=== PATIENT | female | born 1985 | race Caucasian/White ===

== ENCOUNTER 2018-08-05 19:41 | Outpatient (CLI) | payer MEDICAID ==
[~2018-08-05] VITALS: Ht 154.9 cm; Wt 65.2 kg
[2018-08-05 20:24] VITALS: BP 102/63; PULSE 74; RESP 16
[2018-08-05] MEDS ORDERED: FERR134T PO (20:26)
--- NOTE | 2018-08-05 21:38 | PN ---
Triage Information Date/Time Reason for visit: Abd/pelvic pain Weeks of Gestation 26 weeks /Para Diabetes: none Hypertention: none Objective Vital Signs Date Temp Pulse Resp B/P (MAP) Pulse Ox O2 O2 Flow FiO2 Time Delivery Rate 08/05/18 98.7 74 16 102/63 Room Air 20:24 (76) Heart Rate: 130's Heart Rate Comments Appropriate for GA Contractions: None Exam Cervix closed Results/Medications Result Diagram: 08/05/18202608/05/182026 Results 24 hrs Laboratory Tests Test 08/05/18 19:40 08/05/18 20:27 Urine Color STRAW Urine Clarity CLEAR Urine pH 7.0 Urine Specific [place] 1.005 Urine Ketones NEGATIVE Urine Nitrite NEGATIVE Urine Bilirubin NEGATIVE Urine Urobilinogen NEGATIVE Urine Leukocyte Esterase NEGATIVE Urine Hemoglobin NEGATIVE Urine Glucose NEGATIVE Urine Total Protein NEGATIVE White Blood Count 10.3 Red Blood Count 3.69 L Hemoglobin 11.8 L Hematocrit 34.7 L Mean Corpuscular Volume 94.0 Mean Corpuscular Hemoglobin 32.0 Mean Corpuscular Hemoglobin Concent 34.0 Red Cell Distribution Width 12.6 Platelet Count 236 Mean Platelet Volume 10.2 Immature Granulocytes % 1.100 H Neutrophils % 74.2 Lymphocytes % 16.4 Monocytes % 6.7 Eosinophils % 1.2 Basophils % 0.4 Nucleated Red Blood Cells % 0.0 Immature Granulocytes # 0.110 H Neutrophils # 7.6 H Lymphocytes # 1.7 Monocytes # 0.7 Eosinophils # 0.1 Basophils # 0.0 Nucleated Red Blood Cells # 0.0 Sodium Level 137 Potassium Level 3.9 Chloride Level 104 Carbon Dioxide Level 21 Anion Gap 12 Blood Urea Nitrogen 9 Creatinine 0.41 L Est Glomerular Filtrat Rate mL/min > 60 Glucose Level 88 Calcium Level 8.9 Total Bilirubin 0.3 Direct Bilirubin 0.00 Indirect Bilirubin 0.3 Aspartate Amino Transf (AST/SGOT) 17 Alanine Aminotransferase (ALT/SGPT) 20 Alkaline Phosphatase 67 Total Protein 6.5 Albumin 3.5 Globulin 3.00 Albumin/Globulin Ratio 1.16 Imaging Results Cervical length normal Disposition: Discharge Assessment/Plan After rest, patient states her pain resolved. No sign of labor. SEVEN SALCIDO MD Aug 05, 2018 21:38
--- NOTE | 2018-08-06 00:33 | TRIAGE ---
OB Triage Datetime Report Generated by CPN: 08/06/2018 00:33 Datetime: 08/05/2018 21:32 Stage of : OB Triage Vaginal Exam Dilatation (cms): 0.0 Effacement (%): 0 Station: -3 Exam By: dR dELSH Membrane Status: Intact Vaginal Bleeding: None Cervix, Consistency: Firm Cervix, Position: Posterior Datetime: 08/05/2018 21:00 Stage of : OB Triage Labor Evaluation Monitor Mode: External Quality: Mild Pattern: Normal: <= 5 Contractions in 10 Minutes Resting Tone [place]: Relaxed Heart Rate FHR Baseline Rate: 140 Monitor Mode: External US FHR Baseline Changes: No Baseline Change Variability: Moderate 6-25 bpm Accelerations: 15X15 Decelerations: None Category: Category I Datetime: 08/05/2018 20:28 Labor Evaluation Monitor Mode: External Quality: Mild Pattern: Normal: <= 5 Contractions in 10 Minutes Resting Tone [place]: Relaxed Monitor Mode: External US FHR Baseline Changes: No Baseline Change Variability: Moderate 6-25 bpm Accelerations: 10X10 Decelerations: None Category: Category I Membrane Status: Intact Datetime: 08/05/2018 20:08 Time of Arrival: 08/05/2018 19:33 EGA: 26.3 Arrived By: Ambulatory Arrived From: Dr. Britton Chief Complaint: SENT FROM CLINIC W/ C/O CONSTANT ABD PAIN SINCE 1200 TODAY AND OCCAS SINCE HAMMOND NDAY Movement: Present Contractions: Denies/Absent Rupture of Membranes: Denies Vaginal Discharge: Denies Recent Sexual Intercouse: Denies Abdominal Trauma: Not Applicable Patient Complaints: Other Time Provider Notified: 08/05/2018 20:00 Provider Notified: Dr Ruiz Initial Plan: EFM UA Datetime: 08/05/2018 20:00 Stage of : OB Triage Datetime: 08/05/2018 19:54 Stage of : OB Triage Maternal Assessment Level of Consciousness: Fully Conscious Headache: Denies Blurred Vision: No Respiratory Effort: Unlabored Nausea/Vomiting: Denies RUQ Epigastric Pain: Denies Facial Edema: None Labor Evaluation Monitor Mode: External Quality: Mild Pattern: Normal: <= 5 Contractions in 10 Minutes Resting Tone [place]: Relaxed Heart Rate FHR Baseline Rate: 150 Monitor Mode: External US Pain Assessment Pain Scale: 8 Pain Presence: Intermittent Pain Type: Cramping Pain Location: Abdomen
== END 2018-08-05 21:45 | disposition home or self-care (01) ==
LOC: OBT 19:41 → L-D 19:43 → OBT 21:45
PROVIDERS: ATTEND Obstetrics & Gynecology
DX: O26.892 Other specified pregnancy related conditions, second trimester (principal); R10.2 Pelvic and perineal pain; Z3A.26 26 weeks gestation of pregnancy
CPT/HCPCS: 76815; 76817; 80053; 81003; 85025; Z7500; G0463

== ENCOUNTER 2018-08-21 16:41 | Outpatient (CLI) | payer MEDICAID ==
[~2018-08-21] VITALS: Ht 157.5 cm; Wt 65.7 kg
[~2018-08-21 16:41] MED LIST: FERR134T PO
[2018-08-21 16:47] VITALS: Ht 157.5 cm; Wt 65.7 kg
[2018-08-21 17:19] VITALS: BP 91/54; PULSE 71
[2018-08-21] MEDS ORDERED: ACETAMINOPHEN 500 MG TAB PO STA (21:14)
--- NOTE | 2018-08-21 23:33 | PN ---
Triage Information Date/Time 08/21/18 Reason for visit: Abd/pelvic pain Weeks of Gestation 28w5d /Para Diabetes: none Hypertention: none Objective Vital Signs Date Temp Pulse Resp B/P (MAP) Pulse Ox O2 O2 Flow FiO2 Time Delivery Rate 08/21/18 98.6 71 91/54 (66) Room Air 17:19 Heart Rate: 140's Heart Rate Comments cat i Contractions: None Results/Medications Result Diagram: 08/21/18 1745 08/21/18 1745 Results 24 hrs Laboratory Tests Test 08/21/18 17:03 08/21/18 17:45 Urine Color YELLOW Urine Clarity SLIGHTLY CLOUDY A Urine pH 6.0 Urine Specific [place] 1.012 Urine Ketones NEGATIVE Urine Nitrite NEGATIVE Urine Bilirubin NEGATIVE Urine Urobilinogen NEGATIVE Urine Leukocyte Esterase NEGATIVE Urine Microscopic RBC 1 Urine Microscopic WBC 2 Urine Squamous Epithelial Cells FEW Urine Bacteria FEW A Urine Hemoglobin NEGATIVE Urine Glucose NEGATIVE Urine Total Protein NEGATIVE White Blood Count 8.8 Red Blood Count 3.62 L Hemoglobin 11.5 L Hematocrit 34.1 L Mean Corpuscular Volume 94.2 Mean Corpuscular Hemoglobin 31.8 Mean Corpuscular Hemoglobin Concent 33.7 Red Cell Distribution Width 12.6 Platelet Count 244 Mean Platelet Volume 10.2 Immature Granulocytes % 1.000 H Neutrophils % 74.6 Lymphocytes % 15.8 Monocytes % 7.5 Eosinophils % 0.8 Basophils % 0.3 Nucleated Red Blood Cells % 0.0 Immature Granulocytes # 0.090 H Neutrophils # 6.6 Lymphocytes # 1.4 Monocytes # 0.7 Eosinophils # 0.1 Basophils # 0.0 Nucleated Red Blood Cells # 0.0 Sodium Level 136 Potassium Level 4.0 Chloride Level 106 Carbon Dioxide Level 22 Anion Gap 8 Blood Urea Nitrogen 10 Creatinine 0.45 Est Glomerular Filtrat Rate mL/min > 60 Glucose Level 96 Calcium Level 8.9 Total Bilirubin 0.2 Direct Bilirubin 0.00 Indirect Bilirubin 0.2 Aspartate Amino Transf (AST/SGOT) 17 Alanine Aminotransferase (ALT/SGPT) 19 Alkaline Phosphatase 83 Total Protein 6.3 Albumin 3.3 Globulin 3.00 Albumin/Globulin Ratio 1.10 Medications tylenol 1000mg Imaging Results CHLELITHIASIS right renal calculi, non obstuctive BPP 8/8 EDGAR 10.85 Disposition: Discharge Assessment/Plan A IUP 28w5d choelithiasis non obstructive renal calculi P discharge home and f/u with her OB MARY GAVIN MD Aug 21, 2018 23:21
--- NOTE | 2018-08-22 03:37 | TRIAGE ---
OB Triage Datetime Report Generated by CPN: 08/22/2018 03:36 Datetime: 08/21/2018 22:59 Stage of : OB Triage Pain Assessment Pain Scale: 3 Pain Presence: Constant Pain Type: Dull Datetime: 08/21/2018 22:40 Stage of : OB Triage Labor Evaluation Frequency: X2 Monitor Mode: External Duration (sec)2399: 60 Quality: Mild Pattern: Normal: <= 5 Contractions in 10 Minutes Resting Tone [place]: Relaxed Heart Rate FHR Baseline Rate: 135 Monitor Mode: External US Variability: Moderate 6-25 bpm Accelerations: 15X15 Decelerations: None Category: Category I Datetime: 08/21/2018 22:33 EGA: 37.6 Datetime: 08/21/2018 22:30 EGA: 38.5 Datetime: 08/21/2018 21:55 Monitor Mode: External US Datetime: 08/21/2018 21:54 Pain Assessment Pain Scale: 10 Pain Presence: Constant Pain Type: Dull Pain Location: RIGHT UPPER QUADRANT Pain Relief Measures: Pain Medication Given; Comfort Measures Datetime: 08/21/2018 21:40 Stage of : OB Triage Labor Evaluation Frequency: X6 Monitor Mode: External Duration (sec)2399: 40-70 Quality: Mild Pattern: Normal: <= 5 Contractions in 10 Minutes Resting Tone [place]: Relaxed Heart Rate FHR Baseline Rate: 135 Monitor Mode: External US Variability: Moderate 6-25 bpm Accelerations: 15X15 Decelerations: None Category: Category I Datetime: 08/21/2018 20:39 Stage of : OB Triage Labor Evaluation Frequency: X0 Monitor Mode: External Duration (sec)2399: 40-50 Quality: Mild Pattern: Normal: <= 5 Contractions in 10 Minutes Resting Tone [place]: Relaxed Heart Rate FHR Baseline Rate: 135 Monitor Mode: External US Variability: Moderate 6-25 bpm Accelerations: 15X15 Decelerations: None Category: Category I Datetime: 08/21/2018 20:09 Monitor Mode: External US Comments: LOSS CONTACT. PT FOUND STANDING. EFM REVERTS TO MATERNAL HEART RATE Datetime: 08/21/2018 19:16 Labor Evaluation Frequency: X0 Monitor Mode: External Duration (sec)2399: X0 Pattern: Normal: <= 5 Contractions in 10 Minutes Resting Tone [place]: Relaxed Heart Rate FHR Baseline Rate: 140 Monitor Mode: External US Variability: Moderate 6-25 bpm Accelerations: 10X10 Decelerations: None Category: Category I Datetime: 08/21/2018 17:55 Labor Evaluation Frequency: 0 Monitor Mode: External Pattern: Normal: <= 5 Contractions in 10 Minutes Resting Tone [place]: Relaxed Contraction Comments: none noted Heart Rate FHR Baseline Rate: 140 Monitor Mode: External US Variability: Moderate 6-25 bpm Accelerations: 10X10 Decelerations: None Category: Category I Datetime: 08/21/2018 17:40 Labor Evaluation Frequency: 0 Monitor Mode: External Pattern: Normal: <= 5 Contractions in 10 Minutes Resting Tone [place]: Relaxed Contraction Comments: none noted Heart Rate FHR Baseline Rate: 145 Monitor Mode: External US Variability: Moderate 6-25 bpm Accelerations: 15X15 Decelerations: None Category: Category I Datetime: 08/21/2018 17:20 Assessment Type: Triage Maternal Assessment Level of Consciousness: Fully Conscious DTR's/Clonus: DTRs 2+; No Clonus Headache: Denies Blurred Vision: No Respiratory Effort: Unlabored; Regular Rhythm; Equal Expansion Breath Sounds, Left: Clear and Equal Breath Sounds, Right: Clear and Equal Nausea/Vomiting: Denies RUQ Epigastric Pain: Denies Lower Extremities Edema: None Degree: None Upper Extremities Edema: None Degree: None Facial Edema: None Fall Risk Assessment History of Falling: (0) No Secondary Diagnosis: (0) No Ambulatory Aid: (0) Bedrest/Nurse Assist IV Therapy: (0) No Gait: (0) Normal/Bedrest/Immobile Mental Status: (0) Oriented to Own Ability Fall Score: 0 Fall Risk Score Definition: No Risk: No action required Datetime: 08/21/2018 16:50 Time of Arrival: 08/21/2018 16:38 EGA: 28.5 Arrived By: Ambulatory Arrived From: Office Chief Complaint: RIGHT UPPER QUADRANT PAIN Movement: Present Contractions: Denies/Absent Rupture of Membranes: Denies Vaginal Bleeding: None Vaginal Discharge: Denies Recent Sexual Intercouse: Denies Abdominal Trauma: Not Applicable Patient Complaints: Other Time Provider Notified: 08/21/2018 20:59 Provider Notified: DR. GAVIN Initial Plan: NST Datetime: 08/05/2018 20:08 EGA: 26.3
== END 2018-08-21 23:10 | disposition home or self-care (01) ==
LOC: OBT 16:41 → L-D 16:42 → OBT 23:10
PROVIDERS: ATTEND Obstetrics & Gynecology
DX: O26.892 Other specified pregnancy related conditions, second trimester (principal); Z3A.28 28 weeks gestation of pregnancy; R10.2 Pelvic and perineal pain
CPT/HCPCS: 76700; 76818; 80053; 80076; 81001; 81003; 85025; Z7610; G0463

== ENCOUNTER 2018-10-21 13:48 | Outpatient (CLI) | payer MEDICAID ==
[~2018-10-21] VITALS: Ht 157.5 cm; Wt 68.1 kg
[2018-10-21 14:21] VITALS: BP 101/58; Ht 157.5 cm; Wt 68.1 kg
[2018-10-21] MEDS ORDERED: PREN1TAB71 PO (14:23)
--- NOTE | 2018-10-21 15:23 | PN ---
Triage Information Date/Time Reason for visit: DFM Weeks of Gestation 37+ /Para n/a Diabetes: none Hypertention: none Objective Vital Signs Date Temp Pulse Resp B/P (MAP) Pulse Ox O2 O2 Flow FiO2 Time Delivery Rate 10/21/18 98.4 101/58 14:21 (72) Heart Rate: 140's Contractions: None Disposition: Discharge Assessment/Plan Cx closed BPP 03/05 Precautions discussed Questions answered Follow up with provider ALEE AARON M.D. October 21, 2018 15:23
== END 2018-10-21 15:40 | disposition home or self-care (01) ==
LOC: OBT 13:48 → L-D 13:50 → OBT 15:40
PROVIDERS: ATTEND Obstetrics & Gynecology
DX: O36.8130 Decreased fetal movements, third trimester, not applicable or unspecified (principal); Z3A.37 37 weeks gestation of pregnancy
CPT/HCPCS: 76818; Z7500; G0463

== ENCOUNTER 2018-11-13 22:42 | Inpatient (IN) | payer MEDICAID ==
[~2018-11-13] VITALS: Ht 157.5 cm; Wt 70.3 kg
[2018-11-13 22:34] VITALS: Ht 157.5 cm; Wt 70.3 kg
[~2018-11-13 22:42] MED LIST changes: +PREN1TAB71 PO
[2018-11-13 22:55] VITALS: BP 102/62; PULSE 70; RESP 18
[2018-11-13] MEDS ORDERED: LACTATED RINGER'S 1,000 ML IV PRN (23:43)
[2018-11-14] MEDS ORDERED: OXYTOCIN 30 UNITS/LR 500 ML IV PRN
[2018-11-14] MEDS ORDERED: METHYLERGONOVINE 0.2 MG INJ IM PRN
[2018-11-14] MEDS ORDERED: MISOPROSTOL 200 MCG TAB PR PRN
[2018-11-14] MEDS ORDERED: OXYTOCIN 30 UNITS/LR 500 ML IV SCH ×2
[2018-11-14] MEDS ORDERED: IBUPROFEN 600 MG TAB PO PRN
[2018-11-14] MEDS ORDERED: BUTORPHANOL 2 MG INJ IV PRN
[2018-11-14] MEDS ORDERED: LIDOCAINE 1% (MPF) 30 ML INJ INJ PRN
[2018-11-14] MEDS ORDERED: CARBOPROST 250 MCG INJ IM PRN
[2018-11-14] MEDS ORDERED: MISOPROSTOL 50 MCG CAPSULE PO SCH (01:00)
[2018-11-14] MEDS: LACTATED RINGER'S 1,000 ML IV SCH ×3 (01:58→16:49)
--- NOTE | 2018-11-14 02:16 | TRIAGE ---
OB Triage Datetime Report Generated by CPN: 11/14/2018 02:15 Datetime: 11/13/2018 23:15 Monitor Mode: External Datetime: 11/13/2018 23:13 Vaginal Exam Dilatation (cms): 0.0 Effacement (%): 0 Station: -3 Exam By: azy k RN Membrane Status: Intact Cervix, Position: Posterior Datetime: 11/13/2018 23:12 Monitor Mode: External Monitor Mode: External US Datetime: 11/13/2018 23:02 Time of Arrival: 11/13/2018 22:34 EGA: 40.5 Arrived By: Ambulatory Arrived From: Home Chief Complaint: c/o dizziness since yesterday, abdominal tightness has gotten stronger since yesterday, pt feels SOB with UC Movement: Present Contractions: Irregular Time Contractions Began: 11/12/2018 09:00 Rupture of Membranes: Denies Vaginal Bleeding: None Vaginal Discharge: Denies Recent Sexual Intercouse: Denies Abdominal Trauma: Not Applicable Patient Complaints: Contractions; Shortness of Breath; Dizziness Time Provider Notified: 11/14/2018 23:25 Provider Notified: LESLYE Initial Plan: EFM, SVE Datetime: 11/13/2018 22:59 Monitor Mode: External Datetime: 11/13/2018 22:52 Stage of : OB Triage Monitor Mode: External Monitor Mode: External US Datetime: 10/21/2018 15:01 Stage of : OB Triage Labor Evaluation Frequency: x1 Monitor Mode: External Duration (sec)2399: 50 Pattern: Normal: <= 5 Contractions in 10 Minutes Resting Tone [place]: Relaxed Heart Rate FHR Baseline Rate: 145 Monitor Mode: External US Variability: Moderate 6-25 bpm Accelerations: 15X15 Decelerations: None Category: Category I Datetime: 10/21/2018 14:31 Comments: US AT BEDSIDE Datetime: 10/21/2018 14:21 Stage of : OB Triage Labor Evaluation Frequency: 0 Monitor Mode: External Pattern: Normal: <= 5 Contractions in 10 Minutes Resting Tone [place]: Relaxed Heart Rate FHR Baseline Rate: 145 Monitor Mode: External US Variability: Moderate 6-25 bpm Accelerations: 15X15 Decelerations: None Category: Category I Datetime: 10/21/2018 14:02 Stage of : OB Triage Assessment Type: Triage Maternal Assessment Level of Consciousness: Fully Conscious DTR's/Clonus: DTRs 2+; No Clonus Headache: Denies Blurred Vision: No Respiratory Effort: Unlabored; Regular Rhythm; Equal Expansion Breath Sounds, Left: Clear and Equal Breath Sounds, Right: Clear and Equal Nausea/Vomiting: Denies RUQ Epigastric Pain: Denies Lower Extremities Edema: None Degree: None Upper Extremities Edema: None Degree: None Facial Edema: None Fall Risk Assessment History of Falling: (0) No Secondary Diagnosis: (0) No Ambulatory Aid: (0) Bedrest/Nurse Assist IV Therapy: (0) No Gait: (0) Normal/Bedrest/Immobile Mental Status: (0) Oriented to Own Ability Fall Score: 0 Fall Risk Score Definition: No Risk: No action required Monitor Mode: External US Pain Assessment Pain Scale: 0 Datetime: 10/21/2018 14:00 Time of Arrival: 10/21/2018 14:45 EGA: 37.3 Arrived By: Ambulatory Arrived From: Office Chief Complaint: SENT FOR DFM Movement: Decreased Contractions: Denies/Absent Rupture of Membranes: Denies Vaginal Bleeding: Bright Red Vaginal Discharge: Denies Recent Sexual Intercouse: Denies Patient Complaints: Other Time Provider Notified: 10/21/2018 15:20 Provider Notified: DR. GHAYOORI Initial Plan: NST, BPP Datetime: 08/21/2018 22:59 Pain Location: RIGHT UPPER QUADRANT Datetime: 08/21/2018 22:33 EGA: 37.6 Datetime: 08/21/2018 22:30 EGA: 38.5 Datetime: 08/21/2018 17:20 Fall Score: 0 Fall Risk Score Definition: No Risk: No action required Datetime: 08/21/2018 16:50 EGA: 28.5 Datetime: 08/05/2018 20:08 EGA: 26.3
[2018-11-14] MEDS: MISOPROSTOL 50 MCG CAPSULE PO SCH ×5 (03:27→21:32)
[2018-11-14] MEDS ORDERED: MINERAL OIL LIGHT 10 ML VIAL TOP ONE (08:00)
[2018-11-15] MEDS: LACTATED RINGER'S 1,000 ML IV SCH ×3 (00:40→16:43)
[2018-11-15] MEDS: MISOPROSTOL 50 MCG CAPSULE PO SCH (01:47)
[2018-11-15] MEDS: BUTORPHANOL 2 MG INJ IV PRN ×3 (08:40→14:53)
[2018-11-15] MEDS: OXYTOCIN 30 UNITS/LR 500 ML IV SCH (08:47)
[2018-11-16] MEDS: LACTATED RINGER'S 1,000 ML IV SCH ×4 (00:03→22:04)
[2018-11-16] MEDS: OXYTOCIN 30 UNITS/LR 500 ML IV SCH (00:13)
--- NOTE | 2018-11-16 18:37 | PREAC ---
Date/Time of Note Date/Time of Note DATE: 11/16/18 TIME: 18:35 Anesthesia Eval and Record Evaluation Time Pre-Procedure Interview DATE: 11/16/18 TIME: 18:35 Age 32 Sex female NPO: 8 hrs Preoperative diagnosis labor pair Planned procedure epidural Past Medical History Past Medical History: None Surgery & Anesthesia Issues No known issue Meds Anticoagulation: No Beta Stephanie within 24 hr: No Reason Beta Stephanie not given: Pt. not on B-Stephanie Reported Medications Vit No.130/Iron/FA ( Tablet) 1 Each Tablet, 1 EACH PO 10/21/18 Discontinued Reported Medications Ferrous Sulfate (Iron) 134 Mg Tablet, 134 MG PO DAILY, TAB 08/05/18 Current Medications Lactated Ringer's 1,000 ml @ 125 mls/hr Q8H IV Last administered on 11/16/18at 15:40; Admin Dose 125 MLS/HR; Start 11/13/18 at 23:43 Butorphanol Tartrate (Stadol) 1 mg Q2H PRN IV .PAIN SCALE 1-5; Start 11/14/18 at 00:00 Butorphanol Tartrate (Stadol) 2 mg Q2H PRN IV .PAIN SCALE 6-10 Last administered on 11/15/18at 14:53; Admin Dose 2 MG; Start 11/14/18 at 00:00 Lidocaine (Xylocaine 1% (Mpf)) 30 ml ONCE PRN INJ .EPISIOTOMY; Start 11/14/18 at 00:00 Oxytocin/Lactated Ringer's 500 ml @ 500 mls/hr ONCE POST IV ; Start 11/14/18 at 00:00 Oxytocin/Lactated Ringer's 500 ml @ 125 mls/hr POST IV ; Start 11/14/18 at 00:00 Ibuprofen (Motrin) 600 mg ONCE PRN PO .PAIN 1-5; Start 11/14/18 at 00:00 Lactated Ringer's 1,000 ml @ 2,000 mls/hr Q30M PRN IV .ANESTHESIA; Start 11/13/18 at 23:43 Oxytocin/Lactated Ringer's 500 ml @ 0 mls/hr ONCE PRN IV .VAGINAL BLEEDING; Start 11/14/18 at 00:00 Methylergonovine Maleate (Methergine) 0.2 mg ONCE PRN IM .VAGINAL BLEEDING; Start 11/14/18 at 00:00 Carboprost Tromethamine (Hemabate) 250 mcg ONCE PRN IM .VAGINAL BLEEDING; Start 11/14/18 at 00:00 Misoprostol (Cytotec) 1,000 mcg ONCE PRN VA .VAGINAL BLEEDING; Start 11/14/18 at 00:00 Oxytocin/Lactated Ringer's 500 ml @ 0 mls/hr FOR AUGMENTATION IV Last administered on 11/16/18at 00:13; Admin Dose 1 MLS/HR; Start 11/15/18 at 07:00 Meds reviewed: Yes Allergies Coded Allergies: No Known Allergy (Unverified , 11/13/18) Allergies Reviewed: Yes Labs/Studies Labs Reviewed: Reviewed by anesthesiologist Result Diagram: 11/14/18 0155 test: Positive Studies: ECG (n/a), CXR (n/a) Pre-procedure Exam Last vitals Vital Signs Date Temp Pulse Resp B/P (MAP) Pulse Ox O2 O2 Flow FiO2 Time Delivery Rate 11/13/18 98.7 70 18 102/62 Room Air 22:55 (75) Airway: Adequate mouth opening Mallampati: Mallampati I Teeth: Normal Lung: Normal Heart: Normal ASA Physical Status ASA physical status: 2 Emergency: None Planned Anesthetic Neuraxial: Epidural Pre-operative Attestations Prior to commencing anesthesia and surgery, the patient was re-evaluated, there was verification of: *The patient's identity *The results of appropriate recent lab work and preoperative vital signs *The above evaluation not changing prior to induction *Anesthetic plan, risk benefits, alternative and complications discussed with patient/family; questions answered; patient/family understands, accepts and wishes to proceed. DEV WERNER MD Nov 16, 2018 18:37
[2018-11-16] MEDS ORDERED: FENTAnyl 2MCG/ML-ROPIV 0.2% 100 ML ONE (19:07)
[2018-11-17] VITALS: BP 94/58; PULSE 82; RESP 19
[2018-11-17] MEDS: OXYTOCIN 30 UNITS/LR 500 ML IV SCH (02:03)
[2018-11-17] MEDS ORDERED: NALOXONE (0.4 MG/ML) INJ IV PRN ×2 (04:00→20:00)
[2018-11-17] MEDS ORDERED: ONDANSETRON 4 MG INJ IV PRN ×2 (04:00→20:00)
[2018-11-17] MEDS: FENTAnyl 2MCG/ML-ROPIV 0.2% 100 ML BAG EPI SCH ×2 (04:08→11:25)
[2018-11-17] MEDS: LACTATED RINGER'S 1,000 ML IV SCH ×2 (06:17→14:13)
--- NOTE | 2018-11-17 06:31 | HP ---
Date/Time of Note Date/Time of Note DATE: 11/17/18 TIME: 06:19 OB - History Hx of Present Free Text/Dictation 32 y.o here for IOL for postdate at 40w6d VE cl/long/-3 with occ uc which is mild, membrane intact tracing CAT I care wa initiated at 23w3d, no apparent problem. EFW 3765gm EDGAR no measurable pocket seen admitted for IOL Chief Complaint: IOL Estimated Due Date: Nov 08, 2018 : 1 Para: 0 Spontaneous : 0 Therapeutic : 0 Care: Limited Care Ultrasounds: Normal mid trimester US Obstetrical Complications: None Medical Complications: None Past Family/Social History * Past Medical, Surgical, Family and Obstetric Histories reviewed from chart. Blood Type: A+ Rubella: immune RPR/VDRL: Negative GBS Status: Negative HBsAG: Negative OB Admission Exam Vital Signs Vital Signs Vital Signs Date Temp Pulse Resp B/P (MAP) Pulse Ox O2 O2 Flow FiO2 Time Delivery Rate 11/13/18 98.7 70 18 102/62 Room Air 22:55 (75) Physical Exam HEENT: WNL Heart: Rhythm Normal Lungs: Clear, Equal Abdomen: WNL Extremities: Normal Reflexes: Normal Cervical Dilatation: None Effacement: 0% Station: -3 Membranes: Intact Heart Rate: 140's Accelerations: Accelerations Present Decelerations: No Decelerations Varibility: Moderate Contractions on Admission: >10 Minutes Apart Intensity: Mild OB Assessment/Plan Reason for admission: induction of labor Other Assessment: IUP 40w6d oligohydramnios Plan: Induction Induction Method: per Pitocin Protocol MARY GAVIN MD Nov 17, 2018 06:30
--- NOTE | 2018-11-17 06:34 | QN ---
Documentation Comment late entry for service done at 11/17/18 0030 VE 3-4/100/-2 ARM clear MARY GAVIN MD Nov 17, 2018 06:34
[2018-11-17] MEDS ORDERED: CEFAZOLIN 2 GM/50 ML (PMX) 50 ML IVPB SCH (11:00)
--- NOTE | 2018-11-17 18:32 | OPR ---
Operative Report Planned Procedure Procedure date Nov 17, 2018 Procedure(s) primary c/s Performed by see signature line Factory Representative: LUIZ LEVI MD Pre-procedure diagnosis failed induction [id number] Anesthesia Type: Louyz0p spinal Post-Procedure Post-procedure diagnosis same as pre op Findings Live Baby [], Apgars [] and [], weight [], position [], [] presentation []cord. Estimated Blood Loss: 600 - 700 mls Specimen(s) none Grafts/Implant(s) none Complication(s) none Pt Condition post procedure: stable Disposition: PACU Procedure Description Under satisfactory [spinal ] anesthesia, the patient was prepped and draped and placed in a supine position, tilted to the left. Pfannenstiel incision was made, carried through the subcutaneous tissue. Bleeders brought under control with electrocautery. Fascia incised to the length of the incision. Rectus muscles from the fascia, divided midline. Peritoneum exposed, entered through a transverse incision. Exploration of abdomen revealed gravid uterus. Bladder flap was developed. Transverse incision was made in the lower segment of the uterus. Amniotic sac ruptured. [clear ] amniotic fluid noted. [] Nasal oropharyngeal suction was performed. The baby was handed to the team for immediate attention. The placenta was delivered manually intact. Uterine cavity was cleaned with wet sponge and drainage established. Uterus closed in 2 layers using [] in continuous fashion. Peritoneal cavity irrigated with warm saline. Sponge, needle and instrument count reported to be correct. Abdominal peritoneum closed with [] continuously. Rectus muscle approximated with []. Fascia closed with one monocryl[], and skin closed with travis. Estimated blood loss 700[]mL. Urine bag contained []mL of urine DELPHINE PONCE MD Nov 17, 2018 18:32
[2018-11-17] MEDS ORDERED: morphine SULFATE/PF (10 MG/10 ML) INJ ONE (18:51)
[2018-11-17] MEDS ORDERED: OXYTOCIN 10 UNIT INJ ONE ×2 (18:52→19:26)
[2018-11-17] MEDS ORDERED: ONDANSETRON 4 MG INJ ONE (18:52)
[2018-11-17] MEDS ORDERED: PHENYLephrine 10 MG INJ ONE (19:24)
[2018-11-17] MEDS ORDERED: DIPHENHYDRAMINE 50 MG INJ IV PRN (20:00)
[2018-11-17] MEDS ORDERED: morphine 2 MG INJ IV PRN (20:00)
--- NOTE | 2018-11-17 20:03 | PAC ---
Date/Time of Note Date/Time of Note DATE: 11/17/18 TIME: 20:02 Post-Anesthesia Notes Post-Anesthesia Note Last documented vital signs Vital Signs Date Temp Pulse Resp B/P (MAP) Pulse Ox O2 O2 Flow FiO2 Time Delivery Rate 11/13/18 98.7 70 18 102/62 Room Air 22:55 (75) Activity: WNL Respiratory function: WNL Cardiovascular function: WNL Mental status: Baseline Pain reasonably controlled: Yes Hydration appropriate: Yes Nausea/Vomiting absent: Yes Comments BP:122/56, P:78, Spo2:100%, T:98,8 PREM MENDIETA MD Nov 17, 2018 20:03
[2018-11-17] MEDS: KETOROLAC 30 MG INJ IV PRN (20:19)
[2018-11-17 23:00] VITALS: BP 99/61; PULSE 85; RESP 19
[2018-11-17] MEDS ORDERED: OXYTOCIN 30 UNITS/LR 500 ML IV SCH (23:26)
[2018-11-17] MEDS ORDERED: LACTATED RINGER'S 1,000 ML IV SCH (23:26)
[2018-11-17] MEDS ORDERED: CARBOPROST 250 MCG INJ IM PRN (23:30)
[2018-11-17] MEDS ORDERED: NA PHOSPHATE/BIPHOS 133 ML ENEMA PR PRN (23:30)
[2018-11-17] MEDS: IBUPROFEN 800 MG TAB PO SCH (23:30)
[2018-11-17] MEDS ORDERED: NACL 0.9% 3 ML SYG IV SCH (23:30)
[2018-11-17] MEDS ORDERED: MISOPROSTOL 200 MCG TAB PR PRN (23:30)
[2018-11-17] MEDS ORDERED: METHYLERGONOVINE 0.2 MG INJ IM PRN (23:30)
[2018-11-17] MEDS ORDERED: LANOLIN HPA 1 PKT TOP PRN (23:30)
[2018-11-17] MEDS ORDERED: OXYTOCIN 30 UNITS/LR 500 ML IV PRN (23:30)
[2018-11-17] MEDS ORDERED: HYDROCODONE/APAP (5/325) TAB PO PRN (23:30)
[2018-11-18] VITALS (7 sets, daily range): BP systolic 95–106; BP diastolic 56–73; PULSE 64–82; RESP 14–20
[2018-11-18] MEDS: IBUPROFEN 800 MG TAB PO SCH ×3 (06:00→22:55)
[2018-11-18] MEDS: KETOROLAC 30 MG INJ IV PRN ×2 (07:03→16:12)
--- NOTE | 2018-11-18 08:04 | PAC ---
Date/Time of Note Date/Time of Note DATE: 11/18/18 TIME: 08:04 Post-Anesthesia Notes Post-Anesthesia Note Last documented vital signs Vital Signs Date Temp Pulse Resp B/P (MAP) Pulse Ox O2 O2 Flow FiO2 Time Delivery Rate 11/18/18 98.2 76 20 98/60 (73) 98 Room Air 04:00 11/18/18 97 01:00 Activity: WNL Respiratory function: WNL Cardiovascular function: WNL Mental status: Baseline Pain reasonably controlled: Yes Hydration appropriate: Yes Nausea/Vomiting absent: No DEV WERNER MD Nov 18, 2018 08:04
--- NOTE | 2018-11-18 08:32 | QN ---
Documentation Comment doing well vss abd soft incision c&d d/c IV DELPHINE PONCE MD Nov 18, 2018 08:32
[2018-11-19 04:00] VITALS: BP 109/71; PULSE 72; RESP 18
[2018-11-19] MEDS: IBUPROFEN 800 MG TAB PO SCH ×3 (06:57→22:56)
[2018-11-19 08:00] VITALS: BP 106/63; PULSE 71; RESP 18
--- NOTE | 2018-11-19 14:48 | QN ---
Documentation Comment Postoperative day 2 She is doing well. She has no complaints Exam is unremarkable She is afebrile, vital signs stable Baby is doing well at bedside. She is bonding well with Continue current management. DARYN YOUNGER Nov 19, 2018 14:48
[2018-11-19 15:31] VITALS: BP 95/58; PULSE 88; RESP 18
[2018-11-19 16:00] VITALS: BP 95/58; PULSE 88; RESP 18
[2018-11-19 20:10] VITALS: BP 95/62; PULSE 70; RESP 19
[2018-11-20 03:25] VITALS: BP 102/71; PULSE 56; RESP 20
[2018-11-20] MEDS: IBUPROFEN 800 MG TAB PO SCH (05:39)
[2018-11-20 08:00] VITALS: BP 110/74; PULSE 61; RESP 18
[2018-11-20] MEDS ORDERED: MEASLES,MUMPS,RUBELLA VACCINE INJ SC* ONE (09:00)
[2018-11-20] MEDS ORDERED: DIPHTH/TET/ACEL PERTUSS (ADULT) 0.5 ML VIAL IM* ONE (09:00)
--- NOTE | 2018-11-20 11:44 | DS ---
Date/Time of Note Date/Time of Note DATE: 11/20/18 TIME: 11:43 Discharge Summary Admission/Discharge Info Admit Date/Time Nov 13, 2018 at 23:33 Discharge Date/Time Discharge Diagnosis term Patient Condition: Stable Hospital Course unremarkable Home Meds Reported Medications Vit No.130/Iron/FA ( Tablet) 1 Each Tablet, 1 EACH PO 10/21/18 Discontinued Reported Medications Ferrous Sulfate (Iron) 134 Mg Tablet, 134 MG PO DAILY, TAB 08/05/18 Primary Care Provider Care Physician No Primary DELPHINE PONCE MD Nov 20, 2018 11:44
--- NOTE | 2018-11-21 16:24 | DELSUM ---
Delivery Summary A-C Datetime Report Generated by CPN: 11/21/2018 16:24 DELIVERY PERSONNEL Metal Caster: Tersigni, Yahaira MATERNAL INFORMATION Delivery Anesthesia: Spinal Medications in Delivery: see Anesthesia Flowsheet Delivery QBL (ml): 600 Placenta Cultured: No Maternal Complications: None RN Comments: FAILED INDUCTION OF LABOR LABOR SUMMARY EDC: 11/08/2018 00:00 No. Babies in Womb: 1 Attempted: No Labor Anesthesia: IV Sedation LABOR INFORMATION Reason for Induction: Other Reason for Induction- Other: POST DATES Onset of Labor: 11/14/2018 22:53 Cervical Ripening Agents: Cytotec @ Oxytocin: Induction Group B Beta Strep: Negative Antibiotics # of Doses: 1 Antibiotics Time of Last Dose: 11/17/2018 19:00 Steroids Given: None Reason Steroids Not Administered: Not Applicable MEMBRANES Membranes Rupture Method: Artificial Rupture of Membranes: 11/17/2018 00:20 Length of Rupture (hr): 18.90 Amniotic Fluid Color: Light Meconium Amniotic Fluid Amount: Scant Amniotic Fluid Odor: Normal STAGES OF LABOR Stage 3 hr: 0 Stage 3 min: 1 Total Time in Labor hr: 68 Total Time in Labor min: 22 CSECTION DELIVERY Primary Indication: Failed Induction CSection Urgency: Non Elective CSection Incidence: Primary Labor: Labor Elective: Nonelective CSection Incision: Lower Uterine Transverse BABY A INFORMATION Delivery Date/Time: 11/17/2018 19:14 Method of Delivery: Born in Route : No : N/A Forceps: N/A Vacuum Extraction: N/A Shoulder Dystocia : N/A SHOULDER DYSTOCIA BABY A Delivery Date/Time: 11/17/2018 19:14 PRESENTATION/POSITION BABY A Presentation: Cephalic Cephalic Presentation: Vertex Vertex Position: Left Occipital Anterior Breech Presentation: N/A PLACENTA INFORMATION BABY A Placenta Delivery Time : 11/17/2018 19:15 Placenta Method of Delivery: Manual Removal Placenta Status: Delivered SCORES BABY A Heart Rate 1 min: >100 bpm Resp Effort 1 min: Good Cry Reflex Irritability 1 min: Cough/Sneeze/Pulls Away Muscle Tone 1 min: Active Motion Color 1 min: Blue/Pale Resuscitation Effort 1 min: Tactile Stimulation SCORE 1 MIN: 8 Heart Rate 5 min: >100 bpm Resp Effort 5 min: Good Cry Reflex Irritability 5 min: Cough/Sneeze/Pulls Away Muscle Tone 5 min: Active Motion Color 5 min: Body [place], Extremit Blue Resuscitation Effort 5 min: Tactile Stimulation SCORE 5 MIN: 9 INFANT INFORMATION BABY A Gestational Age at Delivery: 41.2 Gestational Status: Late Term- 41- 41.6 Weeks Outcome : Liveborn, with signs of life Condition : Stable Infant Sex: Male IDENTIFICATION/MEDS BABY A ID Band Number: [id number] ID Band Location: Right Leg; Left Arm Sensor Applied: Yes Sensor Number: [id number] Sensor Location : Cord Clamp Vitamin K Given : Not Given Erythromycin Given: Not Given WEIGHT/LENGTH BABY A Infant Birthweight (gm): 3630 Infant Weight (lb): 8 Infant Weight (oz): 0 Length (in): 21.00 Length (cm): 53.34 CORD INFORMATION BABY A No. Cord Vessels: 3 Nuchal Cord : N/A Cord Blood Taken: Yes Suction: Mouth; Nose; Pharynx ASSESSMENT BABY A Complications: Meconium Physical Findings at Delivery: Within Normal Limits Infant Respirations: Appears Normal Range Scientist/ALS Called : Yes Care By: / Milagros MILLS Transferred To: Remains with Mother
== END 2018-11-20 14:28 | disposition home or self-care (01) | DRG 787 ==
LOC: L-D 22:42 → OBT 22:42 → L-D 23:33 → PP1 11-17 22:39
PROVIDERS: ADMIT Obstetrics & Gynecology; ATTEND Obstetrics & Gynecology
PROC: 10907ZC Drainage of Amniotic Fluid, Therapeutic from Products of Conception, Via Natural or Artificial Opening (ICD-10-PCS; 2018-11-17)
PROC: 3E0P7VZ Introduction of Hormone into Female Reproductive, Via Natural or Artificial Opening (ICD-10-PCS; 2018-11-17)
PROC: 10D00Z1 Extraction of Products of Conception, Low, Open Approach (ICD-10-PCS; principal; 2018-11-17 18:45)
DX: O48.0 Post-term pregnancy (principal); O41.03X0 Oligohydramnios, third trimester, not applicable or unspecified; Z3A.40 40 weeks gestation of pregnancy; O62.0 Primary inadequate contractions; Z37.0 Single live birth
CPT/HCPCS: 62322; 76815; 85025; 85610; 85730; 86592; 86850; 86900; 86901; 88307; 99464; G0463; J0595; J0690; J1885; J2274; J2370; J2405; J2590; J3010; J7120